=== PATIENT | female | born 1970 | race Caucasian/White ===

== ENCOUNTER 2020-09-07 07:04 | Emergency (ER) | payer OTHER, MEDICAID ==
[~2020-09-07] VITALS: Ht 160 cm; Wt 81.6 kg
[~2020-09-07 07:04] MED LIST: ACET-2619 PO; ALUM360S96 PO; AMLO5TAB PO; BENZ-203 PO; ESK300 PO; HAL5 PO; KEP500 PO; MAGN400S60 PO; METF500T PO; ORE25 PO; QUET400T PO; TEMA30CA23 PO; XALOS OP; [UNRECOGNIZED DRUG - CODE] PO
[2020-09-07 07:14] VITALS: BP 112/65
[2020-09-07] MEDS ORDERED: ACETAMINOPHEN 325 MG TAB PO ONE (09:55)
[2020-09-07 10:21] VITALS: BP 117/93
== END 2020-09-07 10:00 | disposition home or self-care (01) ==
LOC: MED 07:04
DX: J18.9 Pneumonia, unspecified organism (principal); J45.909 Unspecified asthma, uncomplicated; E11.9 Type 2 diabetes mellitus without complications; Z79.899 Other long term (current) drug therapy
CPT/HCPCS: 71045; 81025; 99283

== ENCOUNTER 2022-01-26 03:10 | Emergency (ER) | payer OTHER, MEDICAID ==
[~2022-01-26] VITALS: Ht 160 cm; Wt 72.6 kg
[~2022-01-26 03:10] MED LIST changes: -BENZ-203 PO; +BENZ-315 PO; +HYDR-4004 PO; +METF-346 PO; -METF500T PO; -ORE25 PO
[2022-01-26 03:12] VITALS: BP 106/74
--- NOTE | 2022-01-26 03:20 | NUR ---
RIGHT ANKLE PAIN XTODAY. PATIENT FELL AT [facility] PMH: SZX, ARTHRITIS, DM, DEPRESSION NKA
--- NOTE | 2022-01-26 03:30 | NUR ---
X-RAY AT BEDSIDE
[2022-01-26 04:05] VITALS: BP 106/74
--- NOTE | 2022-01-26 04:05 | NUR ---
Patient discharged with v/s stable. Written and verbal after care instructions given and explained. Patient verbalized understanding. Ambulatory with steady gait. All questions addressed prior to discharge. Advised to follow up with PMD.
== END 2022-01-26 04:05 | disposition home or self-care (01) ==
LOC: MED 03:10
DX: S93.401A Sprain of unspecified ligament of right ankle, initial encounter (principal); W06.XXXA Fall from bed, initial encounter; Y93.89 Activity, other specified; Y92.89 Other specified places as the place of occurrence of the external cause; Y99.8 Other external cause status
CPT/HCPCS: 73610; 99283; Q0092

== ENCOUNTER 2022-10-24 12:27 | Emergency (ER) | payer OTHER, MEDICAID ==
[~2022-10-24] VITALS: Ht 160 cm; Wt 68.0 kg
[2022-10-24 12:39] VITALS: BP 95/58
[2022-10-24] MEDS ORDERED: ATA25 PO (14:20)
[2022-10-24] MEDS ORDERED: ELIMC TP (14:20)
--- NOTE | 2022-10-24 14:48 | NUR ---
ASSUMED PATIENT CARE FOR DC INSTRUCTIONS. Patient discharged with v/s stable. Written and verbal after care instructions given and explained. Patient alert, oriented and verbalized understanding of instructions. Ambulatory with steady gait. All questions addressed prior to discharge. ID band removed. Patient advised to follow up with PMD. Rx of ATARAX, PERMETHRIN given. Patient educated on indication of medication including possible reaction and side effects. Opportunity to ask questions provided and answered.
[2022-10-24 14:49] VITALS: BP 95/58
== END 2022-10-24 14:49 | disposition home or self-care (01) ==
LOC: MED 12:27
DX: B86 Scabies (principal); L30.9 Dermatitis, unspecified; J45.909 Unspecified asthma, uncomplicated; E11.9 Type 2 diabetes mellitus without complications; Z86.69 Personal history of other diseases of the nervous system and sense organs; Z79.899 Other long term (current) drug therapy
CPT/HCPCS: 99283

== ENCOUNTER 2022-12-31 17:02 | Emergency (ER) | payer OTHER, MEDICAID ==
[~2022-12-31] VITALS: Ht 162.6 cm; Wt 83.9 kg
[~2022-12-31 17:02] MED LIST changes: +ATA25 PO; +ELIMC TP
[2022-12-31 17:04] VITALS: BP 120/77
[2022-12-31] MEDS ORDERED: LIDOCAINE 1% 500 MG/ 50 ML VIAL INJ ONE (17:20)
--- NOTE | 2022-12-31 17:21 | NUR ---
ASSUMED PATIENT CARE, NURSING ASSESSMENT COMPLETED.
[2022-12-31] MEDS ORDERED: LIDOCAINE MPF 1% 5 ML ONE (17:23)
[2022-12-31] MEDS ORDERED: CEPH-588 PO (17:32)
--- NOTE | 2022-12-31 17:38 | NUR ---
[place] [employer] AT BEDSIDE. OFFICER [place]. REPORT #[id number]
[2022-12-31 17:54] VITALS: BP 120/77
[2023-01-01] MEDS ORDERED: CEPH-588 PO (13:51)
== END 2022-12-31 17:54 | disposition home or self-care (01) ==
LOC: MED 17:02
DX: S01.111A Laceration without foreign body of right eyelid and periocular area, initial encounter (principal); E11.9 Type 2 diabetes mellitus without complications; J45.909 Unspecified asthma, uncomplicated; Z79.899 Other long term (current) drug therapy; Z79.84 Long term (current) use of oral hypoglycemic drugs; Y04.2XXA Assault by strike against or bumped into by another person, initial encounter; Y93.89 Activity, other specified; Y92.89 Other specified places as the place of occurrence of the external cause; Y99.8 Other external cause status
CPT/HCPCS: 12011; 90471; 90715; 99283; J2001

== ENCOUNTER 2023-01-10 11:43 | Emergency (ER) | payer OTHER, MEDICAID ==
[~2023-01-10] VITALS: Ht 160 cm; Wt 66.7 kg
[~2023-01-10 11:43] MED LIST changes: +CEPH-588 PO
[2023-01-10 12:19] VITALS: BP 105/73
== END 2023-01-10 14:24 | disposition home or self-care (01) ==
LOC: MED 11:43
DX: S01.111D Laceration without foreign body of right eyelid and periocular area, subsequent encounter (principal); J45.909 Unspecified asthma, uncomplicated; E11.9 Type 2 diabetes mellitus without complications; I10 Essential (primary) hypertension; Z79.899 Other long term (current) drug therapy; Z79.84 Long term (current) use of oral hypoglycemic drugs; X58.XXXD Exposure to other specified factors, subsequent encounter
CPT/HCPCS: 99281

== ENCOUNTER 2023-02-26 20:51 | Emergency (ER) | payer OTHER, MEDICAID ==
[~2023-02-26] VITALS: Ht 160 cm; Wt 66.7 kg
[2023-02-26 20:51] VITALS: BP 109/71; PULSE 89; RESP 16; TEMP 97.7; O2SAT 97
--- NOTE | 2023-02-26 20:55 | NUR ---
PT ARELIS MCCORMICK, OFFLOADED TO ER LOBBY VIA EMS
--- NOTE | 2023-02-26 23:08 | NUR ---
PT TAKEN TO ER BED 12
--- NOTE | 2023-02-26 23:21 | NUR ---
Patient resting in bed, A/Ox4, chest rise and fall symmetrical, no s/s of distress, patient on monitor, call light within reach, seizure pads in place.
--- NOTE | 2023-02-27 00:13 | NUR ---
Patient resting in bed, A/Ox4, chest rise and fall symmetrical, no s/s of distress, patient on monitor, call light within reach, seizure pads in place.
--- NOTE | 2023-02-27 02:00 | NUR ---
Patient resting in bed, A/Ox4, chest rise and fall symmetrical, no s/s of distress, patient on monitor, call light within reach, seizure pads in place.
[2023-02-27 02:45] VITALS: BP 97/66; PULSE 74; RESP 18; TEMP 97.9; O2SAT 98
== END 2023-02-27 02:45 | disposition home or self-care (01) ==
LOC: MED 20:51
DX: R07.9 Chest pain, unspecified (principal); F25.9 Schizoaffective disorder, unspecified; J45.909 Unspecified asthma, uncomplicated; E11.9 Type 2 diabetes mellitus without complications; I10 Essential (primary) hypertension; Z79.899 Other long term (current) drug therapy; Z79.84 Long term (current) use of oral hypoglycemic drugs
CPT/HCPCS: 93005; 99285

== ENCOUNTER 2023-05-24 19:18 | Emergency (ER) | payer OTHER, MEDICAID ==
[~2023-05-24] VITALS: Ht 160 cm; Wt 83.0 kg
[2023-05-24 19:24] VITALS: BP 106/76; PULSE 96; RESP 20; TEMP 98; O2SAT 98
[2023-05-24 20:45] LABS: BASOPHILS % (AUTO) 0.5 % (0.0-2.0); EOSINOPHILS # (AUTO) 0.2 K/uL (0-0.4); EOSINOPHILS % (AUTO) 2.3 % (0.0-4.0); HEMOGLOBIN 10.9 g/dL (12.0-16.0); LYMPHOCYTES # (AUTO) 2.3 K/uL (2.5-16.5); MEAN CORPUSCULAR HEMOGLOBIN 30 pg (27-31); MEAN CORPUSCULAR HGB CONC 33 g/dL (33-37); MEAN CORPUSCULAR VOLUME 89.6 fL (80-94); MONOCYTES # (AUTO) 0.8 K/uL (0.8-1.0); MONOCYTES % (AUTO) 11.4 % (1.7-9.3); NEUTROPHILS # (AUTO) 3.9 K/uL (1.8-7.7); NEUTROPHILS % (AUTO) 53.8 % (42.2-75.2); PLATELET COUNT (AUTO) 249 K/uL (140-450); RED BLOOD CELL COUNT(AUTO) 3.68 MIL/uL (4.20-5.40); RED CELL DISTRIBUTION WIDTH 13.9 % (11.6-13.7); WHITE BLOOD COUNT (AUTO) 7.3 K/uL (4.8-10.8)
[2023-05-24 21:19] LABS: APPEARANCE,URINE CLEAR (CLEAR); BILIRUBIN,URINE NEGATIVE (NEGATIVE); BLOOD, URINE NEGATIVE (NEGATIVE); COLOR,URINE YELLOW (YELLOW); LEUKOCYTE ESTERASE ,URINE NEGATIVE (NEGATIVE); NITRITE, URINE NEGATIVE (NEGATIVE); PH,URINE 6.5 (5.0-9.0); PROTEIN,URINE NEGATIVE (NEGATIVE); UGLUCOSE NEGATIVE (NEGATIVE); UROBILINOGEN,URINE 0.2 EU/dL (0.2 - 1)
[2023-05-24 21:24] LABS: ALANINE AMINOTRANSFERASE 40 U/L (12-78); ALBUMIN 3.5 g/dL (3.4-5.0); ALKALINE PHOSPHATASE 67 U/L (50-136); ANION GAP 11.1 (8-16); ASPARTATE AMINOTRANSFERASE 24 U/L (15-37); CALCIUM 9.1 mg/dL (8.5-10.1); CARBON DIOXIDE 27.9 mmol/L (21-32); CHLORIDE 105 mmol/L (98-107); CREATININE 1.1 mg/dL (0.6-1.3); GFR ARICAN-AMERICAN 67 mL/min (>90); GFR NON ARICAN-AMERICAN 55 mL/min (>90); GLUCOSE 79 mg/dL (74-106); LIPASE 114 U/L (16-77); SODIUM SERUM 140 mmol/L (136-145); TOTAL BILIRUBIN 0.2 mg/dL (0.0-1.0); TOTAL PROTEIN, SERUM 7.7 g/dL (6.4-8.2); UREA NITROGEN, BLOOD 17 mg/dL (7-18)
[2023-05-25] MEDS ORDERED: ACET-10509 PO (01:26)
[2023-05-25 03:17] VITALS: BP 122/78; PULSE 88; RESP 18; TEMP 98.1; O2SAT 100
== END 2023-05-25 03:17 | disposition home or self-care (01) ==
LOC: MED 19:18
DX: R10.84 Generalized abdominal pain (principal); D64.9 Anemia, unspecified; M47.816 Spondylosis without myelopathy or radiculopathy, lumbar region; I70.0 Atherosclerosis of aorta; J45.909 Unspecified asthma, uncomplicated; E11.9 Type 2 diabetes mellitus without complications; I10 Essential (primary) hypertension; F31.9 Bipolar disorder, unspecified; I25.10 Atherosclerotic heart disease of native coronary artery without angina pectoris; E78.5 Hyperlipidemia, unspecified; Z86.69 Personal history of other diseases of the nervous system and sense organs; Z79.899 Other long term (current) drug therapy; Z79.2 Long term (current) use of antibiotics
CPT/HCPCS: 36415; 80053; 81003; 81025; 83690; 84484; 85025; 99285

== ENCOUNTER 2023-06-01 20:38 | Emergency (ER) | payer OTHER, MEDICAID ==
[~2023-06-01] VITALS: Ht 157.5 cm; Wt 68.0 kg
[~2023-06-01 20:38] MED LIST changes: +ACET-10509 PO
[2023-06-01 20:44] VITALS: BP 99/48; PULSE 95; RESP 16; TEMP 97.4; O2SAT 96
[2023-06-02 00:03] LABS: APPEARANCE,URINE CLEAR (CLEAR); BILIRUBIN,URINE NEGATIVE (NEGATIVE); BLOOD, URINE NEGATIVE (NEGATIVE); COLOR,URINE YELLOW (YELLOW); LEUKOCYTE ESTERASE ,URINE NEGATIVE (NEGATIVE); NITRITE, URINE NEGATIVE (NEGATIVE); PROTEIN,URINE NEGATIVE (NEGATIVE); UGLUCOSE NEGATIVE (NEGATIVE); UROBILINOGEN,URINE 0.2 EU/dL (0.2 - 1)
[2023-06-02 03:02] VITALS: BP 102/60; PULSE 88; RESP 16; TEMP 97.4; O2SAT 96
== END 2023-06-02 03:01 | disposition home or self-care (01) ==
LOC: MED 20:38
DX: R10.9 Unspecified abdominal pain (principal); J45.909 Unspecified asthma, uncomplicated; I10 Essential (primary) hypertension; E11.9 Type 2 diabetes mellitus without complications; Z79.4 Long term (current) use of insulin; Z79.899 Other long term (current) drug therapy
CPT/HCPCS: 81003; 81025; 99283